=== PATIENT | female | born 1985 | race Caucasian/White ===

== ENCOUNTER 2020-12-19 21:31 | Emergency (ER) | payer OTHER ==
[~2020-12-19] VITALS: Ht 167.6 cm; Wt 74.8 kg
--- NOTE | 2020-12-19 21:34 | NUR ---
Patient to ER bed 06 to gown for evaluation. Side rails up.
--- NOTE | 2020-12-19 21:34 | NUR ---
ER Dr. marinelli at bedside examining patient.
--- NOTE | 2020-12-19 21:35 | NUR ---
pt arrived to er with complaints of feeling like throat is closing, "cant take a full breath". pt is a&ox3 and is speaking in full sentences. states 2/10 pain when relxaed and 9/10 when walking or bending over. THis occurenmce started last night at 0300 and hasnt gotten better since/
[2020-12-19 21:36] VITALS: BP_SYST 153
[2020-12-19] MEDS ORDERED: ALPRAZolam 0.25 MG TABLET PO ONE (21:45)
[2020-12-19] MEDS ORDERED: EPINEPHrine 1 MG/ML AMP IM ONE (21:45)
[2020-12-19] MEDS ORDERED: DIPHENHYDRAMINE INJ 50 MG/ML VIAL IM ONE (23:00)
[2020-12-19] MEDS ORDERED: methylPREDNISolone SOD SUCC/PF 62.5 MG/ML VIAL IM ONE (23:00)
--- NOTE | 2020-12-19 23:01 | NUR ---
pt refused solumedrol, benadryl, and pepcid
[2020-12-19] MEDS ORDERED: FAMOTIDINE 20 MG TABLET PO ONE (23:15)
--- NOTE | 2020-12-19 23:27 | NUR ---
Patient transported to radiology via wheelchair, accompanied by tech.
--- NOTE | 2020-12-20 00:20 | NUR ---
Patient given written and verbal discharge instructions and verbalizes understanding. ER MD discussed with patient the results and treatment provided. Patient in stable condition. ID arm band removed.Patient educated on pain management and to follow up with PMD. Pain Scale 1/10. Opportunity for questions provided and answered. Medication side effect fact sheet provided.
[2020-12-20 00:21] VITALS: BP_SYST 115
== END 2020-12-20 00:20 | disposition home or self-care (01) ==
LOC: SED 21:31
DX: T78.40XA Allergy, unspecified, initial encounter (principal); Z88.1 Allergy status to other antibiotic agents; X58.XXXA Exposure to other specified factors, initial encounter
CPT/HCPCS: 70360; 81025; 96372; 99283; J0171; J1200; J2930

== ENCOUNTER 2021-08-01 10:13 | Emergency (ER) | payer OTHER ==
[~2021-08-01] VITALS: Ht 172.7 cm; Wt 63.5 kg
[2021-08-01 10:23] VITALS: BP_SYST 128
[2021-08-01] MEDS ORDERED: KETOROLAC TROMETHAMINE 30 MG VIAL IVP ONE (11:30)
[2021-08-01] MEDS ORDERED: NACL 0.9% 1,000 ML IV ONE (11:30)
[2021-08-01] MEDS ORDERED: DIAZEPAM 5 MG TABLET (VALIUM) PO ONE (11:30)
[2021-08-01] MEDS ORDERED: LIDOCAINE 2%, 20 ML MDV INJ ONE (11:30)
[2021-08-01] MEDS ORDERED: methylPREDNISolone SOD SUCC/PF 62.5 MG/ML VIAL IVP ONE (11:45)
[2021-08-01] MEDS ORDERED: BUPIVACAINE /PF 0.25% 30 ML VIAL INJ ONE (11:45)
[2021-08-01 12:09] LABS: ANION GAP 12 (5-15); CALCIUM 9.3 mg/dL (8.4-11.0); CHLORIDE 105 mmol/L (98-107); CREATININE 0.62 mg/dL (0.55-1.30); GFR AFRICAN AMERICAN 142 mL/min (>90); GLUCOSE 106 mg/dL (70-99); POTASSIUM 4.1 mmol/L (3.5-5.1); SODIUM SERUM 139 mmol/L (136-145); UREA NITROGEN, BLOOD 11 mg/dL (8-21)
[2021-08-01 12:15] LABS: ALANINE AMINOTRANSFERASE 17 U/L (12-78); ALBUMIN 4.1 g/dL (3.4-4.8); ASPARTATE AMINOTRANSFERASE 14 U/L (10-37); TOTAL BILIRUBIN < 0.1 mg/dL (0.0-1.0)
[2021-08-01] MEDS ORDERED: ONDANSETRON HCL 4 MG/2 ML VIAL IVP ONE (12:30)
[2021-08-01] MEDS ORDERED: MORPHINE 4 MG INJ. 4 MG/ML VIAL IVP ONE (12:30)
[2021-08-01] MEDS ORDERED: OXYC-128 PO (14:13)
[2021-08-01] MEDS ORDERED: IBUP-1969 PO (14:13)
[2021-08-01] MEDS ORDERED: DIAZ5TAB PO (14:13)
[2021-08-01] MEDS ORDERED: METH-634 PO (14:58)
[2021-08-01 15:08] VITALS: BP_SYST 134
== END 2021-08-01 15:08 | disposition home or self-care (01) ==
LOC: SED 10:13
DX: S46.812A Strain of other muscles, fascia and tendons at shoulder and upper arm level, left arm, initial encounter (principal); G58.8 Other specified mononeuropathies; Z88.1 Allergy status to other antibiotic agents; X58.XXXA Exposure to other specified factors, initial encounter; Y93.89 Activity, other specified; Y92.89 Other specified places as the place of occurrence of the external cause; Y99.8 Other external cause status
CPT/HCPCS: 36415; 72125; 76376; 80053; 96361; 96374; 96375; 99284; J1885; J2001; J2270; J2930; J3490; J7030